=== PATIENT | female | born 1950 | race African-American/Black ===

== ENCOUNTER 2020-08-17 14:10 | Emergency (ER) | payer MEDICAID, OTHER ==
[~2020-08-17] VITALS: Ht 165.1 cm; Wt 91.0 kg
[2020-08-17] MEDS ORDERED: ONDANSETRON HCL 4MG/2ML INJ IV STA ×2 (14:27→17:03)
[2020-08-17] MEDS ORDERED: MORPHINE SULFATE 4 MG/ML CPJ (NOT FOR IM USE) IV STA ×2 (14:27→17:03)
[2020-08-17] MEDS ORDERED: SODIUM CHLORIDE 0.9% 1,000 ML IV ONE (14:30)
[2020-08-17 15:15] LABS: BASOPHILS % 0.6 % (0.0-2.0); EOSINOPHILS % 2.3 % (0.0-5.0); HEMOGLOBIN. 13.6 g/dL (12.0-16.0); LYMPHOCYTES % 17.5 % (20.0-50.0); MEAN CORPUSCULAR HEMOGLOBIN 32.5 pg (28.0-32.0); MEAN CORPUSCULAR VOLUME 95.7 fL (81.0-99.0); MEAN PLATELET VOLUME 8.8 fl (7.4-10.4); MONOCYTES % 6.3 % (2.0-8.0); NEUTROPHILS % 73.3 % (40.0-76.0); PLATELET 240 x1000/uL (130-400); RED BLOOD CELL COUNT 4.18 mill/uL (4.2-5.4); RED CELL DISTRIBUTION WIDTH 12.6 % (11.6-14.6)
[2020-08-17 15:22] LABS: CHLORIDE 104 mEq/L (98-107)
[2020-08-17] MEDS ORDERED: HYDROCODONE/ACETAMINOPHEN 5/325MG TABLET PO ONE (17:30)
[2020-08-17] MEDS ORDERED: CYCLOBENZAPRINE 10MG TABLET PO ONE (17:30)
[2020-08-17] MEDS ORDERED: LISINOPRIL 40MG TABLET PO ONE (18:45)
[2020-08-17 19:08] VITALS: BP 184/77
== END 2020-08-17 19:24 | disposition short-term general hospital (02) ==
LOC: ER 14:10
DX: M54.5 Low back pain (principal); E11.9 Type 2 diabetes mellitus without complications; I10 Essential (primary) hypertension
CPT/HCPCS: 36415; 70450; 71045; 72131; 80053; 82962; 85025; 93005; 96361; 96374; 96375; 96376; 99285; J2270; J2405; J7030

== ENCOUNTER 2025-02-02 10:15 | Emergency (ER) | payer OTHER, MEDICAID ==
[~2025-02-02] VITALS: Ht 160 cm; Wt 65.0 kg
[2025-02-02 10:19] VITALS: O2SAT 100
[2025-02-02] MEDS: LORAZEPAM 0.5MG TABLET PO ONE (11:07)
[2025-02-02 11:36] LABS: BASOPHILS % 0.5 % (0.0-2.0); EOSINOPHILS % 2.5 % (0.0-5.0); HEMATOCRIT. 35.3 % (36.0-48.0); HEMOGLOBIN. 11.6 g/dL (12.0-16.0); MEAN CORPUSCULAR HEMOGLOBIN 30.2 pg (28.0-32.0); MEAN CORPUSCULAR HGB CONC 32.9 g/dL (31.0-37.0); MEAN CORPUSCULAR VOLUME 91.8 fL (81.0-99.0); MEAN PLATELET VOLUME 7.9 fl (7.4-10.4); MONOCYTES % 8.5 % (2.0-8.0); NEUTROPHILS % 78.5 % (40.0-76.0); PLATELET 275 x1000/uL (130-400); RED BLOOD CELL COUNT 3.84 mill/uL (4.2-5.4); RED CELL DISTRIBUTION WIDTH 14.7 % (11.6-14.6); WHITE BLOOD COUNT 11.5 x1000/uL (4.5-11.0)
[2025-02-02 11:43] LABS: CHLORIDE 101 mEq/L (98-107); POTASSIUM 3.8 mEq/L (3.5-5.1); SODIUM 132 mEq/L (136-145)
[2025-02-02 11:44] LABS: CALCIUM 9.1 mg/dL (8.7-10.4); CARBON DIOXIDE 25 mEq/L (21-32)
[2025-02-02 11:49] LABS: CREATININE 0.8 mg/dL (0.6-1.0); GLUCOSE 381 mg/dL (70-105); UREA NITROGEN BLOOD 7 mg/dL (9-23)
[2025-02-02 11:51] LABS: TROPONIN I HIGH SENSITIVITY 11 ng/L (3.0-34)
[2025-02-02] MEDS ORDERED: HYDR-3782 PO (13:03)
[2025-02-02] MEDS: ACETAMINOPHEN 325MG TABLET PO ONE (13:22)
[2025-02-02 14:39] VITALS: BP 115/58; PULSE 71; RESP 15; TEMP 36.7; O2SAT 95
== END 2025-02-02 15:10 | disposition home or self-care (01) ==
LOC: ER 10:15
DX: F41.9 Anxiety disorder, unspecified (principal); E11.9 Type 2 diabetes mellitus without complications; I10 Essential (primary) hypertension; Z88.5 Allergy status to narcotic agent
CPT/HCPCS: 36415; 71045; 73502; 80048; 83880; 84484; 85025; 93005; 99285